=== PATIENT | male | born 1985 | race Caucasian/White ===

== ENCOUNTER 2022-09-01 15:40 | Emergency (ER) | payer BC ==
[~2022-09-01] VITALS: Ht 180.3 cm; Wt 77.3 kg
[2022-09-01] MEDS ORDERED: ondansetron/PF 4mg/2ml inj IV ONE (16:20)
[2022-09-01] MEDS ORDERED: thiamine 100mg/ml 2ml inj. IV ONE (16:20)
[2022-09-01] MEDS ORDERED: famotidine/PF 10 mg/ml inj IV ONE (16:20)
[2022-09-01] MEDS ORDERED: LORazepam 2 mg/ml vial IV ONE ×2 (16:20→17:55)
[2022-09-01] MEDS ORDERED: normal saline 1000ML IV soln IV ONE (16:20)
[2022-09-01] MEDS ORDERED: folic acid 1mg/0.2ml inj IV ONE (16:20)
[2022-09-01 17:14] LABS: BASOPHILS # (AUTO) 0.1 X10'3 (0-0.2); BASOPHILS % (AUTO) 1.9 % (0-1); EOSINOPHILS % (AUTO) 0.2 % (0-6); HEMOGLOBIN 16.3 g/dl (14.0-17.9); LYMPHOCYTES # (AUTO) 0.3 X10'3 (1.1-4.8); MEAN CORPUSCULAR HEMOGLOBIN 34.3 PG (27.0-31.0); MEAN CORPUSCULAR HGB CONC 34.7 g/dL (33.0-36.5); MEAN CORPUSCULAR VOLUME 98.8 FL (78-98); MEAN PLATELET VOLUME 6.4 FL (7.4-10.4); MONOCYTES # (AUTO) 0.4 X10'3 (0-0.9); MONOCYTES % (AUTO) 10.2 % (2-12); NEUTROPHILS % (AUTO) 80.7 % (42-75); PLATELET COUNT 87 X10'3 (140-440); RED BLOOD COUNT 4.76 X10'6 (4.70-6.10); RED CELL DISTRIBUTION WIDTH 12.4 % (11.5-14.5); WHITE BLOOD COUNT 3.7 X10'3 (4.5-11.0)
[2022-09-01 17:26] LABS: ALANINE AMINOTRANSFERASE 247 U/L (12-78); ALBUMIN 4.2 G/DL (3.4-5.0); ALBUMIN/GLOBULIN RATIO 1.5 (1.1-1.5); ALKALINE PHOSPHATASE 69 IU/L (46-116); ANION GAP 10 (8-16); ASPARTATE AMINO TRANSFERASE 312 U/L (10-37); BILIRUBIN,TOTAL 1.1 MG/DL (0.1-1.0); BLOOD UREA NITROGEN 6 MG/DL (7-18); BUN/CREATININE RATIO 8.8 (10.0-20.0); CALCIUM 8.4 MG/DL (8.5-10.1); CHLORIDE 103 MMOL/L (99-107); CREATINE KINASE 66 U/L (39-308); CREATININE 0.68 MG/DL (0.60-1.10); GLUCOSE 107 MG/DL (70-104); MAGNESIUM 1.7 MG/DL (1.5-2.4); POTASSIUM 4.1 MMOL/L (3.5-5.1); SODIUM 140 MMOL/L (135-145); TOTAL CARBON DIOXIDE 26.7 MMOL/L (24-32); eGFR > 90 ML/MIN
[2022-09-01 17:54] LABS: ETHANOL 0.256 GM/DL (0.0-0.010)
[2022-09-01] MEDS ORDERED: LORA-269 PO (18:04)
[2022-09-01] MEDS ORDERED: ONDA4TAB12 PO (18:04)
[2022-09-01 19:02] VITALS: BP 123/87
== END 2022-09-01 19:03 | disposition home or self-care (01) ==
LOC: ER 15:41 → VAS 15:41 → ER 19:03
DX: F10.239 Alcohol dependence with withdrawal, unspecified (principal); F10.229 Alcohol dependence with intoxication, unspecified; R11.2 Nausea with vomiting, unspecified; Z79.899 Other long term (current) drug therapy; Y90.0 Blood alcohol level of less than 20 mg/100 ml
CPT/HCPCS: 36415; 80053; 80320; 82550; 82948; 83735; 85025; 96361; 96374; 96375; 96376; 99284; J2060; J2405; J3411; J3490; J7030

== ENCOUNTER 2023-01-13 10:32 | Emergency (ER) | payer BC ==
[~2023-01-13] VITALS: Ht 180.3 cm; Wt 78.2 kg
[~2023-01-13 10:32] MED LIST: LORA-269 PO; ONDA4TAB12 PO
[2023-01-13] MEDS ORDERED: LIDO700A32 TOP (12:25)
[2023-01-13] MEDS ORDERED: NAPR-56 PO (12:25)
[2023-01-13 13:23] VITALS: BP 123/86; PULSE 98; RESP 16; TEMP 98.5; O2SAT 100
--- NOTE | 2023-01-13 16:40 | NUR ---
ASSESSMENT MADE BY RADIO INTERFERENCE INVESTIGATOR REVIEWED AND APPROVED BY THIS RN
== END 2023-01-13 16:40 | disposition home or self-care (01) ==
LOC: ER 10:32
DX: S20.211A Contusion of right front wall of thorax, initial encounter (principal); V19.9XXA Pedal cyclist (driver) (passenger) injured in unspecified traffic accident, initial encounter; Y93.89 Activity, other specified; Y92.89 Other specified places as the place of occurrence of the external cause; Y99.8 Other external cause status
CPT/HCPCS: 71111; 73080; 99284